=== PATIENT | female | born 1945 | race Caucasian/White ===

== ENCOUNTER 2023-01-10 14:41 | Emergency (ER) | payer MEDICARE, SELFPAY ==
[2023-01-10] VITALS (7 sets, daily range): BP systolic 102–153; BP diastolic 64–80; PULSE 83–104; RESP 18; TEMP 36.3; O2SAT 93–98; BMI 26.6
--- NOTE | 2023-01-10 14:59 | ED.GENADULT ---
HPI - General Adult General Time Seen by Provider: 14:59 Date Seen: 01/10/23 Chief complaint: Arrhythmia/Palpitations Stated complaint: Erratic pulse and blood pressure Time Seen by Provider: 01/10/23 14:43 Source: patient Mode of arrival: ambulatory Limitations: no limitations History of Present Illness HPI narrative: Patient is a 77-year-old female that felt based on a monitor at home her blood pressure was up and down and heart rate was ?erratic?. She has had a monitor she wore what sounds like a ZIO patch for a couple of weeks in April of this year and no findings were made. She had similar symptoms. She denies any chest pain, breathing problem, fevers, chills, systemic signs of illness. She is not short of breath and has had no chest pain throughout any episode. She felt occasional palpitation. Presenting here she has got a normal sinus rhythm with a ventricular rate of 94 beats per minute with no acute ST T wave changes by my read. Related Data Home Medications Medication Instructions Recorded Confirmed amlodipine 10 mg tablet 10 mg PO DAILY 01/10/23 01/10/23 omeprazole 20 mg capsule,delayed 20 mg PO DAILY 01/10/23 01/10/23 release Allergies Allergy/AdvReac Type Severity Reaction Status Date / Time Iodinated Contrast Media Allergy Verified 01/10/23 14:47 Review of Systems Status of ROS: Reports: 6 or more systems reviewed and unremarkable except as noted in History and below Narrative: Patient reports she has not been ill with any kind of upper respiratory illness or fever illness. [facility] Social History Smoking Status: Never smoker How often do you have a drink containing alcohol: never How often do you have six or more drinks on one occasion: Never AUDIT-C Alcohol total score: 0 Non-prescribed substance use: denies use Exam Narrative: Exam Narrative: Objective: Patient's vital signs look reasonable and within normal limits other than blood pressure just minimally elevated. O2 sats excellent, pulse is 1 100-104. Alert orient x3 No distress no cyanosis Neck is supple Chest clear Heart rhythm regular without murmur no ectopy noted Abdomen benign soft Extremities are no edema neurologic nonfocal upper lower extremities. Const: Vital Signs, click to edit/add: Vital Signs - 24 hr 01/10/23 14:43 01/10/23 14:50 01/10/23 15:10 Temperature 97.3 F L Pulse Rate 87 Pulse Rate [Right Pulse Oximeter] 104 H Respiratory Rate 18 Blood Pressure Blood Pressure [Ri ght Upper Arm] 153/80 H Pulse Oximetry 98 93 97 Oxygen Delivery Me thod Room Air 01/10/23 15:15 01/10/23 15:30 01/10/23 15:45 Temperature Pulse Rate 85 83 85 Pulse Rate [Right Pulse Oximeter] Respiratory Rate Blood Pressure Blood Pressure [Ri ght Upper Arm] Pulse Oximetry 96 97 98 Oxygen Delivery Me thod 01/10/23 16:02 Temperature Pulse Rate Pulse Rate [Right Pulse Oximeter] Respiratory Rate Blood Pressure 102/64 Blood Pressure [Ri ght Upper Arm] Pulse Oximetry Oxygen Delivery Me thod Course Vital Signs Vital signs: Initial Vital Signs Temperature 97.3 F L 01/10/23 14:43 Temperature Source Temporal Artery Scan 01/10/23 14:43 Pulse Rate 104 H 01/10/23 14:43 Respiratory Rate 18 01/10/23 14:43 Blood Pressure 153/80 H 01/10/23 14:43 Blood Pressure Mean 104 01/10/23 14:43 Blood Pressure Position Sitting 01/10/23 14:43 Pulse Oximetry 98 01/10/23 14:43 Oxygen Delivery Method Room Air 01/10/23 14:43 Vital Signs Temperature 97.3 F L 01/10/23 14:43 Pulse Rate 104 H 01/10/23 14:43 Respiratory Rate 18 01/10/23 14:43 Blood Pressure 153/80 H 01/10/23 14:43 Pulse Oximetry 98 01/10/23 14:43 Oxygen Delivery Method Room Air 01/10/23 14:43 Temperature 97.3 F L 01/10/23 14:43 Pulse Rate 85 01/10/23 15:45 Respiratory Rate 18 01/10/23 14:43 Blood Pressure 102/64 01/10/23 16:02 Pulse Oximetry 98 01/10/23 15:45 Oxygen Delivery Method Room Air 01/10/23 14:43 Medical Decision Making MDM Narrative Medical decision making narrative: 77-year-old female with a history of palpitations presents with palpitations she has no arrhythmia noted at this time. I think it be reasonable to check a point of care troponin, lab studies electrolytes, give some IV fluid and disposition pending findings. She states that ?maybe I am better custom here in of ?. Indicating some type of stress or anxiety. She does not feel like that is an issue right now however. As mention there was no findings on her ZIO patch done earlier in the year. Addendum 3:48 p.m.: The patient's EKG looks reassuring showing normal sinus rhythm no acute ST T wave changes by my read, her laboratory studies including troponin are negative. Think we can lower to go home rest observation Cl things progress, monitor symptoms. Discussed with regular doctor in the next few days. Return to ED sooner problems or concerns. She certainly has a history of palpitations this might have occurred but at this point she has worn a 2 week monitor within the last few months and this was unremarkable findings would recommend at this time given she looks clinically well that we simply observe and she can continue home medications and return as needed. Lab Data Labs: Lab Results 01/10/23 01/10/23 Range/Units 14:51 15:00 WBC 5.72 (4.50-11.00) K/uL RBC 5.55 H (4.00-5.20) m/uL Hgb 14.9 (12.0-16.0) gm/dL Hct 44.9 (33.0-51.0) % MCV 81 (80-100) fL MCH 27 (26-34) pg MCHC 33 (32-36) gm/dL RDW Coeff of Darnell 12.4 (11.5-15.5) % Plt Count 280 (140-440) K/uL Neut % (Auto) 72.9 H (42.0-72.0) % Lymph % (Auto) 17.7 L (20-44) % [place] % (Auto) 8.6 (0.0-11.0) % Eos % (Auto) 0.5 (0.0-7.0) % Baso % (Auto) 0.3 (0.0-3.0) % Neut # (Auto) 4.20 (1.7-7.0) K/uL Lymph # (Auto) 1.00 (0.90-2.90) K/uL [place] # (Auto) 0.50 (0.00-0.90) K/UL Eos # (Auto) 0.03 (0.00-0.50) K/uL Baso # (Auto) 0.02 (0.00-0.30) K/uL Abs Immat Gran (auto) 0.00 (0.00-0.30) K/uL Imm/Tot Granulo (auto) 0.0 % INR 0.95 (0.91-1.10) Sodium 138 (135-149) mmol/L Potassium 3.8 (3.6-5.1) mmol/L Chloride 104 (96-114) mmol/L Carbon Dioxide 25 (20-32) mmol/L Anion Gap 9 (7-15) mEq/L BUN 20 (7-30) mg/dL Creatinine 0.9 (0.5-1.5) mg/dL Estimated Creat Clear 37.74 Estimated GFR 65 ml/min Glucose 116 H (60-115) mg/dL Calcium 10.1 (8.4-10.6) mg/dL Total Bilirubin 0.8 (0.1-1.5) mg/dL Direct Bilirubin 0.0 (0.0-0.5) mg/dL AST 29 (12-35) U/L ALT 18 (4-35) U/L Alkaline Phosphatase 87 (40-150) U/L C-Reactive Protein 0.6 (0.5-1.0) mg/dL NT-Pro-B Natriuret Pep 1300 pg/mL Total Protein 7.8 (6.0-8.3) g/dL Albumin 4.6 (3.3-5.0) g/dL POC Troponin I 0.01 (0.01-0.04) ng/ml Discharge Plan Discharge Clinical Impression: Palpitations Patient Disposition: Home w/ Parent or Adult Condition: Improved Additional Instructions: Observation, light activity for 24 hours then may perform activity as tolerated, continue home medications, follow up with primary care within the next week to 10 days for reassessment. Return to ED sooner problems or concerns. Activity Level: Light activity Discharge Diet: Regular Prescriptions: No Action amlodipine 10 mg tablet 10 mg PO DAILY omeprazole 20 mg capsule,delayed release(DR/EC) 20 mg PO DAILY Follow Up/Referrals: Joshua Evans MD [Primary Care Provider] - Stand Alone Forms: [employer] Info Instructions
[2023-01-10 15:12] LABS: Basophils Absolute Auto 0.02 K/uL (0.00-0.30); Basophils Percent Auto 0.3 % (0.0-3.0); Eosinophils Absolute Auto 0.03 K/uL (0.00-0.50); Eosinophils Percent Auto 0.5 % (0.0-7.0); Hematocrit 44.9 % (33.0-51.0); Hemoglobin* 14.9 gm/dL (12.0-16.0); Lymphocytes Percent Auto 17.7 % (20-44); Mean Corpuscular HGB Conc 33 gm/dL (32-36); Mean Corpuscular Hemoglobin 27 pg (26-34); Mean Corpuscular Volume 81 fL (80-100); Monocytes Percent Auto 8.6 % (0.0-11.0); Neutrophils Percent Auto 72.9 % (42.0-72.0); Platelet Count* 280 K/uL (140-440); RDW Coefficient of Variation % 12.4 % (11.5-15.5); Red Blood Count 5.55 m/uL (4.00-5.20); White Blood Count* 5.72 K/uL (4.50-11.00)
[2023-01-10 15:15] LABS: Slide Review Reflex No
[2023-01-10 15:21] LABS: Troponin, Point-of-Care* 0.01 ng/ml (0.01-0.04)
[2023-01-10 15:30] LABS: Albumin* 4.6 g/dL (3.3-5.0); Chloride* 104 mmol/L (96-114); Sodium* 138 mmol/L (135-149)
[2023-01-10 15:31] LABS: Potassium* 3.8 mmol/L (3.6-5.1)
[2023-01-10 15:33] LABS: Alanine Aminotransferase* 18 U/L (4-35); Alkaline Phosphatase* 87 U/L (40-150); Anion Gap 9 mEq/L (7-15); Aspartate Amino Transferase* 29 U/L (12-35); Bilirubin Total* 0.8 mg/dL (0.1-1.5); Carbon Dioxide* 25 mmol/L (20-32); Creatinine* 0.9 mg/dL (0.5-1.5); Est. Creatinine Clearance* 37.74; Estimated Glomerular Filt Rate 65 ml/min; Total Protein* 7.8 g/dL (6.0-8.3)
[2023-01-10 15:34] LABS: Blood Urea Nitrogen* 20 mg/dL (7-30); Calcium* 10.1 mg/dL (8.4-10.6); Glucose* 116 mg/dL (60-115)
[2023-01-10 15:36] LABS: C Reactive Protein* 0.6 mg/dL (0.5-1.0); INR 0.95 (0.91-1.10); Prothrombin Time 13.3 Seconds
[2023-01-10 16:01] LABS: NT Pro B Type NatriureticPept* 1300 pg/mL
== END 2023-01-10 16:17 | disposition home or self-care (01) ==
PROVIDERS: Emergency Provider Family Medicine; PCP Family Medicine
DX: R00.2 Palpitations (principal)
CPT/HCPCS: 36415; 80048; 80076; 83880; 84484; 85025; 85610; 86140; 93005; 94761; 99284

== ENCOUNTER 2023-01-19 19:02 | Emergency (ER) | payer MEDICARE, SELFPAY ==
[2023-01-19 19:42] VITALS: BP 119/77; PULSE 91; RESP 18; TEMP 37.3; O2SAT 96; BMI 26.0
[2023-01-19 19:49] VITALS: BP 128/84; PULSE 95; RESP 18; TEMP 37.3; O2SAT 96
--- NOTE | 2023-01-19 20:32 | ED.GENADULT ---
HPI - General Adult General Chief complaint: Fever Stated complaint: Covid+, fever Time Seen by Provider: 01/19/23 20:20 Source: patient Mode of arrival: ambulatory Limitations: no limitations History of Present Illness HPI narrative: Patient is a 77-year-old female presents to the emergency department for COVID any fever. She says she started having a fever and nausea today. She states she took 2 COVID test at home both for positive. She called the triage line she was told to go to urgent care the emergency department of urgent care is full. She went to urgent care and was pretty full so she came to emergency department. She was wondering if she could get some be for her nausea and Paxlovid. She has had a fever at home was 102. Has not taken anything for the fever yet. Denies chest pain, shortness of breath, weakness, numbness, headache, vision changes, abdominal pain, diarrhea, constipation. Related Data Home Medications Medication Instructions Recorded Confirmed amlodipine 10 mg tablet 10 mg PO DAILY 01/10/23 01/19/23 omeprazole 20 mg capsule,delayed 20 mg PO DAILY 01/10/23 01/19/23 release Previous Rx's Medication Instructions Recorded nirmatrelvir 300 mg (150 mg See Rx Instructions PO .COMPLEX 01/19/23 x2)-ritonavir 100 mg tablet,dose #30 ea pack (Paxlovid) Allergies Allergy/AdvReac Type Severity Reaction Status Date / Time Iodinated Contrast Media Allergy Intermediate Hives Verified 01/19/23 19:50 Review of Systems Status of ROS: Reports: 10 or more systems reviewed and unremarkable except as noted in History and below PFSH PFSH Social History Smoking Status: Never smoker Do you use any of these nicotine containing products: None Second hand tobacco smoke exposure: No How often do you have a drink containing alcohol: never How often do you have six or more drinks on one occasion: Never AUDIT-C Alcohol total score: 0 Non-prescribed substance use: denies use Exam Narrative: Exam Narrative: Const: Well-nourished, Well-developed, in no distress Eyes: PERRL, no conjunctival injection, and symmetrical lids HENT: Atraumatic external nose and ears. Moist mucous membranes. Neck: Symmetric, trachea midline, No thyromegaly. CVS: RRR, No murmurs or gallops. Peripheral pulses 2+ and equal in all extremities RESP: Unlabored respiratory effort. Clear to auscultation bilaterally. GI: Nontender/Nondistended, No rebound or guarding. MSK:Extremities w/o deformity, Normal Active ROM Skin: Warm, Dry. No rashes or lesions. Neuro: Normal Muscle tone, No focal neurological deficits. Psych: Awake, Alert, & Oriented x3. Appropriate mood and affect. Const: Vital Signs, click to edit/add: Vital Signs - 24 hr 01/19/23 19:42 Temperature 99.1 F Pulse Rate [Pulse Oximeter] 91 Respiratory Rate 18 Blood Pressure [[facility] [place] Upper Arm] 119/77 Pulse Oximetry 96 Oxygen Delivery Me thod Room Air Course Vital Signs Vital signs: Initial Vital Signs Temperature 99.1 F 01/19/23 19:42 Temperature Source Temporal Artery Scan 01/19/23 19:42 Pulse Rate 91 01/19/23 19:42 Respiratory Rate 18 01/19/23 19:42 Blood Pressure 119/77 01/19/23 19:42 Blood Pressure Mean 91 01/19/23 19:42 Blood Pressure Position Sitting 01/19/23 19:42 Pulse Oximetry 96 01/19/23 19:42 Oxygen Delivery Method Room Air 01/19/23 19:42 Vital Signs Temperature 99.1 F 01/19/23 19:42 Pulse Rate 91 01/19/23 19:42 Respiratory Rate 18 01/19/23 19:42 Blood Pressure 119/77 01/19/23 19:42 Pulse Oximetry 96 01/19/23 19:42 Oxygen Delivery Method Room Air 01/19/23 19:42 Temperature 99.1 F 01/19/23 19:42 Pulse Rate 91 01/19/23 19:42 Respiratory Rate 18 01/19/23 19:42 Blood Pressure 119/77 01/19/23 19:42 Pulse Oximetry 96 01/19/23 19:42 Oxygen Delivery Method Room Air 01/19/23 19:42 Medications Administered Medications: Discontinued Medications Generic Name Dose Route Start Last Admin Trade Name Freq PRN Reason Stop Dose Admin Ondansetron HCl 4 mg 01/19/23 20:30 01/19/23 20:45 Ondansetron 2 Mg/Ml Inj IVP 01/19/23 20:31 4 mg ONCE ONE Administration Medical Decision Making MDM Narrative Medical decision making narrative: Patient 77-year-old female presents emergency department with COVID in a fever. Vital signs here shows no fever but she does have a pulse of 91. Between the fever 102 at home and the pulse 91 here she does meet SIRS criteria so cbc, BMP and lactate were all ordered. I do not believe is necessary to retest her for COVID as she has had 2 positive test at home. I do not believe imaging is necessary at this time. As she is otherwise looking well. Patient's lactate was within normal limits. CBC showed a white count 3.81 which would be consistent with the COVID. BMP shows no concerning findings. Troponin within normal limits. His a much better after the Zofran he will likely be discharged home. I believe this is reasonable and he is safe for discharge. He will be discharged home with Zofran and paxlovid. We not need to renally dosed her or have her stop any of her medications for the paxlovid Lab Data Labs: Lab Results 01/19/23 Range/Units 20:40 WBC 3.81 L (4.50-11.00) K/uL RBC 4.71 (4.00-5.20) m/uL Hgb 12.9 (12.0-16.0) gm/dL Hct 38.2 (33.0-51.0) % MCV 81 (80-100) fL MCH 27 (26-34) pg MCHC 34 (32-36) gm/dL RDW Coeff of Darnell 12.5 (11.5-15.5) % Plt Count 210 (140-440) K/uL Neut % (Auto) 80.3 H (42.0-72.0) % Lymph % (Auto) 5.5 L (20-44) % [place] % (Auto) 13.1 H (0.0-11.0) % Eos % (Auto) 0.5 (0.0-7.0) % Baso % (Auto) 0.3 (0.0-3.0) % Neut # (Auto) 3.10 (1.7-7.0) K/uL Lymph # (Auto) 0.20 L (0.90-2.90) K/uL [place] # (Auto) 0.50 (0.00-0.90) K/UL Eos # (Auto) 0.00 (0.00-0.50) K/uL Baso # (Auto) 0.00 (0.00-0.30) K/uL Abs Immat Gran (auto) 0.00 (0.00-0.30) K/uL Imm/Tot Granulo (auto) 0.3 % Sodium 134 L (135-149) mmol/L Potassium 3.7 (3.6-5.1) mmol/L Chloride 104 (96-114) mmol/L Carbon Dioxide 22 (20-32) mmol/L Anion Gap 8 (7-15) mEq/L BUN 13 (7-30) mg/dL Creatinine 0.6 (0.5-1.5) mg/dL Estimated Creat Clear 37.74 Estimated GFR 91 ml/min Glucose 91 (60-115) mg/dL Lactate 0.6 (0.5-1.9) mmol/L Calcium 8.9 (8.4-10.6) mg/dL POC Troponin I 0.01 (0.01-0.04) ng/ml Discharge Plan Discharge Clinical Impression: COVID Patient Disposition: Home, Self-Care Condition: Improved Instructions: COVID-19 (Coronavirus Disease 2019) (ED) Additional Instructions: Take Tylenol or ibuprofen for fever. 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 Return to emergency department for new or worsening symptoms Prescriptions: New Paxlovid 300 mg (150 mg x 2)-100 mg tablets,dose pack See Rx Instructions .ROUTE .COMPLEX Qty: 30 0RF Rx Instructions: take TWO 150 mg tablets of nirmatrelvir with ONE 100 mg tablet of ritonavir twice daily for 5 days No Action amlodipine 10 mg tablet 10 mg PO DAILY omeprazole 20 mg capsule,delayed release(DR/EC) 20 mg PO DAILY Follow Up/Referrals: Joshua Evans MD [Primary Care Provider] - Stand Alone Forms: [employer] Info Instructions
[2023-01-19] MEDS: ONDANSETRON 2 MG/ML inj 4 MG IVP (20:45)
[2023-01-19 20:48] LABS: Basophils Percent Auto 0.3 % (0.0-3.0); Eosinophils Percent Auto 0.5 % (0.0-7.0); Hematocrit 38.2 % (33.0-51.0); Hemoglobin* 12.9 gm/dL (12.0-16.0); Immature Granulocytes Pct Auto 0.3 %; Lymphocytes Percent Auto 5.5 % (20-44); Mean Corpuscular HGB Conc 34 gm/dL (32-36); Mean Corpuscular Hemoglobin 27 pg (26-34); Mean Corpuscular Volume 81 fL (80-100); Monocytes Percent Auto 13.1 % (0.0-11.0); Neutrophils Percent Auto 80.3 % (42.0-72.0); Platelet Count* 210 K/uL (140-440); RDW Coefficient of Variation % 12.5 % (11.5-15.5); Red Blood Count 4.71 m/uL (4.00-5.20); White Blood Count* 3.81 K/uL (4.50-11.00)
[2023-01-19 20:49] LABS: Lactate* 0.6 mmol/L (0.5-1.9)
[2023-01-19 20:53] LABS: Troponin, Point-of-Care* 0.01 ng/ml (0.01-0.04)
[2023-01-19 20:54] LABS: Slide Review Reflex No
[2023-01-19 21:00] VITALS: O2SAT 97
[2023-01-19 21:07] LABS: Chloride* 104 mmol/L (96-114); Sodium* 134 mmol/L (135-149)
[2023-01-19 21:08] LABS: Potassium* 3.7 mmol/L (3.6-5.1)
[2023-01-19 21:10] LABS: Anion Gap 8 mEq/L (7-15); Carbon Dioxide* 22 mmol/L (20-32); Creatinine* 0.6 mg/dL (0.5-1.5); Est. Creatinine Clearance* 37.74; Estimated Glomerular Filt Rate 91 ml/min
[2023-01-19 21:11] LABS: Blood Urea Nitrogen* 13 mg/dL (7-30); Calcium* 8.9 mg/dL (8.4-10.6); Glucose* 91 mg/dL (60-115)
[2023-01-19 21:55] VITALS: BP 118/82; PULSE 85; RESP 18; TEMP 36.9; O2SAT 96
[2023-01-19 21:57] VITALS: BP 118/82; PULSE 85; RESP 18; TEMP 36.9
== END 2023-01-19 21:57 | disposition home or self-care (01) ==
PROVIDERS: Emergency Provider Student in an Organized Health Care Education/Training Program; PCP Family Medicine
DX: U07.1 COVID-19 (principal)
CPT/HCPCS: 36415; 80048; 83605; 84484; 85025; 94761; 96374; 99283; J2405